=== PATIENT | male | born 1960 | race Caucasian/White ===

== ENCOUNTER 2024-04-20 11:31 | Outpatient (AMB) | payer MEDICARE, OTHER, SELFPAY ==
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
== END 2024-04-20 13:12 | disposition home or self-care (01) ==
LOC: HO.HOP 11:31
PROVIDERS: Visit Provider Clinical Nurse Specialist Psychiatric/Mental Health
DX: F41.1 Generalized anxiety disorder (principal)
CPT/HCPCS: 90833; 99214

== ENCOUNTER → 2024-04-20 11:31 | Outpatient (BNVA) | payer MEDICARE, OTHER, SELFPAY | PROVIDERS: Visit Provider Clinical Nurse Specialist Psychiatric/Mental Health | DX: F41.1 Generalized anxiety disorder (principal) | CPT/HCPCS: 99212 ==

== ENCOUNTER 2024-07-13 11:17 | Outpatient (AMB) | payer MEDICARE, OTHER, SELFPAY ==
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
== END 2024-07-13 11:51 | disposition home or self-care (01) ==
LOC: HO.HOP 11:17
PROVIDERS: PCP Internal Medicine; Visit Provider Clinical Nurse Specialist Psychiatric/Mental Health
DX: F41.1 Generalized anxiety disorder (principal); C61 Malignant neoplasm of prostate; F51.05 Insomnia due to other mental disorder; F99 Mental disorder, not otherwise specified
CPT/HCPCS: 99214

== ENCOUNTER → 2024-07-13 11:17 | Outpatient (BNVA) | payer MEDICARE, OTHER, SELFPAY | PROVIDERS: PCP Internal Medicine; Visit Provider Clinical Nurse Specialist Psychiatric/Mental Health | DX: F41.1 Generalized anxiety disorder (principal); F51.05 Insomnia due to other mental disorder; F99 Mental disorder, not otherwise specified; C61 Malignant neoplasm of prostate; G47.00 Insomnia, unspecified; Z92.25 Personal history of immunosuppression therapy; Z92.3 Personal history of irradiation | CPT/HCPCS: 99212 ==

== ENCOUNTER 2024-10-18 15:43 | Outpatient (AMB) | payer MEDICARE, OTHER, SELFPAY ==
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
== END 2024-10-18 16:35 | disposition home or self-care (01) ==
LOC: HO.HOP 15:43
PROVIDERS: PCP Internal Medicine; Visit Provider Clinical Nurse Specialist Psychiatric/Mental Health
DX: F90.0 Attention-deficit hyperactivity disorder, predominantly inattentive type (principal); F41.1 Generalized anxiety disorder
CPT/HCPCS: 99214

== ENCOUNTER → 2024-10-18 15:43 | Outpatient (BNVA) | payer MEDICARE, OTHER, SELFPAY | PROVIDERS: PCP Internal Medicine; Visit Provider Clinical Nurse Specialist Psychiatric/Mental Health | DX: F32.A Depression, unspecified (principal); F41.1 Generalized anxiety disorder; F90.9 Attention-deficit hyperactivity disorder, unspecified type; Z71.89 Other specified counseling | CPT/HCPCS: 99212 ==

== ENCOUNTER 2025-02-21 15:42 | Outpatient (AMB) | payer MEDICARE, OTHER, SELFPAY ==
--- OUTSIDE RECORDS SUMMARY | 2025-02-21 15:45 | XMS_ITS | Clinical Summary ---
Author Organization [facility] Address [address] [place] [id number] Phone Care Team Providers Care Barrel Turner Name Role Phone Ambreen Argueta DO Primary Care Provide r Ambreen Argueta DO Unavailable Monique Ellington DO Unavailable Titi Nunes MD Unavailable Charity Brown MD Unavailable Allergies Active Allergy Reactions Criticality Noted Date Comments Promethazine 03/19/2024 Hydroxyzine Hcl 03/19/2024 Medications aspirin 81 MG EC tablet Take 1 tablet by mouth every morning. 01/03/2024 Active atorvastatin (LIPITOR) 80 MG tablet Take 80 mg by mouth every evening. Active cholecalciferol (VITAMIN D3) 2,000 unit tablet Take 2,000 Units by mouth daily. Active LUNESTA 3 mg tablet Take 3 mg by mouth nightly at bedtime. Active lisinopril (PRINIVIL,ZESTR IL) 5 MG tablet Take 5 mg by mouth daily. Active meloxicam (MOBIC) 15 MG tablet Take 15 mg by mouth daily. Active pregabalin (LYRICA) 75 MG capsule Take 75 mg by mouth 2 (two) times a day. 01/09/2024 Active CALCIUM CARBONATE ORAL Take 1 tablet by mouth daily. 1200mg Active Active Problems Problem Noted Date Diagnosed Date Depression 03/19/2024 Diabetes mellitus 03/19/2024 Diverticulosis 03/19/2024 Hyperlipidemia 03/19/2024 Hypertension 03/19/2024 Family history of prostate cancer 03/19/2024 Prostate cancer 02/20/2024 Cancer Staging:Clinical stage from 03/19/2024:Stage IIIC(cT2c, cN0, cM0, PSA: 26, Grade Group: 5, 03/19/24) - Signed by Monique Ellington DO on 03/19/2024 Spinal stenosis of cervical region 01/07/2024 Family History Medical History Relation Comments Prostate cancer Brother Relation Status Comments Brother Social History Tobacco Use Types Packs/Day Years Used Date Smoking Tobacco: Former Cigarettes Smokeless Tobacco: Never Tobacco Cessation:Counseling Given: Not Answered Child or Family Care Answer Date Record ed Do you have problems with on e of the following making it difficult for you to work, study, or receive health care? No 03/12/2024 Education Answer Date Recorded Are you interested in help w ith more adult education (for example, completing high school, GED, job training, learning the [place] language, technical skills, or developing parenting skills)? No 03/12/2024 Are you concerned about learning? Not on file 03/12/2024 No 03/12/2024 Yes 03/12/2024 Food Answer Date Recorded Within the past 6 months we worried whether our food would run out before we got money to buy more. Never True 03/12/2024 Within the past 6 months the food we bought just didn't last and we didn't have enough money to get more. Never True Residential Stability Answer Date Recor ded What is your housing situation today? I have [place] 03/12/2024 How many times have you move d in the past 12 months? Zero (I did not move) 03/12/2024 Paying for Meds Answer Date Recorded Do you have trouble paying for medicines? No 03/12/2024 Paying Utility Bills Answer Date Record ed Do you have trouble paying your heating or elect ricity bill? No 03/12/2024 Transportation Answer Date Recorded Has the lack of transportati on kept you from medical appointments or from getting medications? No 03/12/2024 Digital Access Answer Date Recorded No 02/22/2024 No 02/22/2024 Reliable internet access at home? Not on file 02/22/2024 Device with a working camera? Not on file Sex and Gender Information Value Date Recorded Sex Assigned at Male 02/21/2024 4:42 PM EDT Legal Sex Male 4:40 PM EDT Gender Identity Male 02/21/2024 4:42 PM EDT Sexual Orientation Straight 02/21/2024 4: 42 PM EDT Last Filed Vital Signs Vital Sign Reading Time Taken Comments Blood Pressure 123/75 03/19/2024 2:54 PM EDT Pulse 60 03/19/2024 2:54 PM EDT Temperature 36.8 C (98.2 F) 03/19/2024 2:53 PM EDT Respiratory Rate 18 03/19/2024 2:50 PM EDT Oxygen Saturation 97% 03/19/2024 2:54 PM EDT Inhaled Oxygen Concentration - - Weight 105.4 kg (232 lb 5.8 oz) 03/19/2024 2:50 PM EDT Height 182.5 cm (5' 11.85 ) 03/19/2024 2:50 PM E DT Body Mass Index 31.65 03/19/2024 2:50 PM EDT Plan of Treatment Health Maintenance Due Date Last Done Comments CREATININE LEVEL 1958 HEMOGLOBIN A1C 1958 POTASSIUM LEVEL 1958 DEPRESSION SCREENING 1970 SMOKING Hx and SMOKELESS TOBACCO SCREENING 10/23/1971 HEPATITIS C SCREENING 1976 COLOGUARD 10/23/2003 COLONOSCOPY 10/23/2003 COLORECTAL CANCER SCREENING 10/23/2003 FIT TEST 10/23/2003 FOBT 10/23/2003 SIGMOIDOSCOPY 10/23/2003 VIRTUAL COLONOSCOPY 10/23/2003 ABDOMINAL AORTIC ANEURYSM (AAA) SCREENING 10/23/2023 DIABETIC EYE EXAM 03/19/2024 COVID-19 VACCINE ( season) 2024 05/20/2023, 06/02/2022, 06/19/2021, Additional history exists BLOOD PRESSURE 09/19/2024 03/19/2024 Adult Td,Tdap Booster 11/18/2030 11/18/2020 RSV VACCINE (1 - 1-dose 75+ series) 2033 ZOSTER VACCINES Completed 01/09/2023, 07/20/2022 PNEUMOCOCCAL VACCINES (50+ years) Completed 03/16/2024 HEPATITIS A VACCINES Aged Out No long er eligible based on patient's age to complete this topic HIB VACCINES Aged Out No longer eligi ble based on patient's age to complete this topic MENINGOCOCCAL VACCINES (ACWY) Aged Out No longer eligible based on patient's age to complete this topic MENINGOCOCCAL VACCINES (B) Aged Out N o longer eligible based on patient's age to complete this topic Medical Devices Not on file Insurance [facility] MEDICARE SUPPLEMENT MEDICARE PART A & B [facility] MEDICARE SUPPLEMENT MEDICARE PART A & B [facility] MEDICARE SUPPLEMENT MEDICARE PART A & [place] [address] [address] MEDICARE SUPPLEMENT MEDICARE PART A & [place] [address] MEDICARE SUPPLEMENT MEDICARE PART A & B [employer] MEDICARE SUPPLEMENT MEDICARE PART A & B Care Teams Barrel Turner Relationship Specialty Start Date End Date Ambreen Argueta DO [address] [place] [address] [address] [place] [address] PCP - General Internal Medicine 02/21/24 Ambreen Arugeta DO [address] [place] [address] [address] [place] [address] Internal Medicine 02/21/24 Monique Ellington DO [address] [place] [id number] [email or web address] Medical Oncology 02/22/24 Titi Nunes MD [address] [place] [id number] [email or web address] [email or web address] 02/22/24 Charity Brown MD [address] [place] [phone] [email or web address] Radiation Oncology 03/13/24 Additional Source Comments The information contained in this document represents components of the legal health record. It is not the complete legal health record.[facility]
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
== END 2025-02-21 16:59 | disposition home or self-care (01) ==
LOC: HO.HOP 15:42
PROVIDERS: PCP Internal Medicine; Visit Provider Clinical Nurse Specialist Psychiatric/Mental Health
DX: F41.1 Generalized anxiety disorder (principal); F90.0 Attention-deficit hyperactivity disorder, predominantly inattentive type
CPT/HCPCS: 99214

== ENCOUNTER → 2025-02-21 15:42 | Outpatient (BNVA) | payer MEDICARE, OTHER, SELFPAY | PROVIDERS: PCP Internal Medicine; Visit Provider Clinical Nurse Specialist Psychiatric/Mental Health | DX: F41.1 Generalized anxiety disorder (principal); F90.0 Attention-deficit hyperactivity disorder, predominantly inattentive type | CPT/HCPCS: 99212 ==